=== PATIENT | female | born 1985 | race Caucasian/White ===

== ENCOUNTER 2017-03-18 16:11 | Outpatient (CLI) | payer OTHER ==
--- NOTE | 2017-03-19 13:03 | MRI Report ---
EXAM: LEFT KNEE MRI WITHOUT CONTRAST EXAM DATE: 03/18/2017 05:20 PM. CLINICAL HISTORY: Pain in left knee. COMPARISON: None. TECHNIQUE: Multiplanar, multisequence T1-weighted and fluid-sensitive sequences of the knee without c ontrast. Other: None. FINDINGS: Bones: Small subcortical cysts intercondylar tibia near ACL attachment. These appear degenerative. Al ignment normal. No fracture or marrow edema. Small osteophytes medial compartment. Articular Cartilage: Grade 2 chondromalacia medial compartment. Grade 1-2 chondromalacia patellofemor al compartment. Medial Meniscus: The medial meniscus is intact. Lateral Meniscus: The lateral meniscus is intact. Cruciate Ligaments: Mild T2 hyperintensity and thickening distal ACL, likely chronic sprain. PCL inta ct. Collateral Ligaments: The medial collateral and lateral collateral ligamentous structures are intact. Tendons: The quadriceps, patellar, semimembranosus, and popliteus tendons are unremarkable. Musculature: No edema or fatty atrophy. Other: No effusion. No popliteal cyst. No loose bodies. The medial and lateral retinacula are intact . The subcutaneous tissues and fat pads are unremarkable. IMPRESSION: 1. Likely chronic partial-thickness sprain distal ACL with some degenerative changes in the intercond ylar tibia. 2. Mild chondromalacia medial and patellofemoral compartments. [facility] MUSCULOSKELET[facility] RADIOLOGY SECTION Referring Provider Line: [phone] SITE ID: [id number]
== END 2017-03-18 16:12 | disposition home or self-care (01) ==
LOC: DI 16:11
PROVIDERS: ATTEND Student in an Organized Health Care Education/Training Program
DX: M22.42 Chondromalacia patellae, left knee (principal)

== ENCOUNTER 2019-04-13 14:20 | Outpatient (CLI) | payer OTHER ==
--- NOTE | 2019-04-14 12:08 | MRI Report ---
Reason: PAIN IN LT KNEE Procedure Date: 04/13/2019 Accession Number: [id number] / [id number] Procedure: MRI - Knee LT W/O CPT Code: Final Report FULL RESULT: EXAM: LEFT KNEE MRI WITHOUT CONTRAST EXAM DATE: 04/13/2019 03:13 PM. CLINICAL HISTORY: Pain in left knee. COMPARISON: KNEE LT W/O 03/18/2017 4:30 PM. TECHNIQUE: Multiplanar, multisequence T1-weighted and fluid-sensitive sequences of the knee without contrast. Other: None. FINDINGS: Cruciate ligaments: The anterior and posterior cruciate ligaments apparent intact. There is some heterogenous signal within the lower portion of the anterior cruciate ligament similar to prior. Medial meniscus: Slight blunting at the free margin of the anterior body. No tear identified. Unchanged. Lateral meniscus: Intact. No tear is identified. Collateral ligaments: The medial and fibular collateral ligaments appear intact. Bones and articular surfaces: Mild cartilage thinning and surface irregularity in the patellofemoral compartment. There is some high signal underlying articular cartilage at the central aspect of the trochlea with cartilage fissuring unchanged. Moderate focal cartilage thinning and fissuring at the weightbearing medial femoral condyle which is new compared to the previous exam. Lateral compartment demonstrates no significant articular cartilage defects. Minimal joint effusion. Extensor mechanism: The patellar tendon and quadriceps insertion appear intact. IMPRESSION: 1. New moderate cartilage thinning and fissuring at the weightbearing medial femoral condyle. No associated subchondral edema. 2. Mild to moderate chondromalacia in the patellofemoral compartment unchanged. [facility]
== END 2019-04-13 14:21 | disposition home or self-care (01) ==
LOC: DI 14:20
PROVIDERS: ATTEND Orthopaedic Surgery
DX: M22.42 Chondromalacia patellae, left knee (principal)

== ENCOUNTER 2019-07-06 08:07 | Day surgery (SDC) | payer OTHER ==
[2019-07-06] MEDS ORDERED: GLYCOPYRROLATE 1 MG/5 ML VIAL IVP ONE (08:08)
[2019-07-06] MEDS ORDERED: LIDOCAINE-MPF 2% 5 ML VIAL IM ONE (08:08)
[2019-07-06] MEDS ORDERED: ACETAMINOPHEN 1,000 MG/100 ML 100 ML IV ONE (08:08)
[2019-07-06] MEDS ORDERED: DEXAMETHASONE 4 MG/ML VIAL IVP ONE (08:08)
[2019-07-06] MEDS ORDERED: PROPOFOL 200 MG/20 ML VIAL IVP ONE (08:08)
[2019-07-06] MEDS ORDERED: fentaNYL 100 MCG/2 ML VIAL IVP ONE (08:08)
[2019-07-06] MEDS ORDERED: ONDANSETRON 4 MG/2 ML VIAL IVP ONE (08:08)
[2019-07-06] MEDS ORDERED: KETOROLAC 30 MG/ML VIAL IVP ONE (08:08)
[2019-07-06 08:13] LABS: HCG UR QUAL NEGATIVE
[2019-07-06] MEDS ORDERED: LACTATED RINGERS 1,000 ML IV ONE ×2 (08:27→10:37)
[2019-07-06] MEDS ORDERED: CEFAZOLIN SODIUM IN 0.9 % NACL 2 GM/100 ML BAG IV ONE (08:32)
--- NOTE | 2019-07-06 08:50 | ANESTHESIA ---
Pre-Anesthesia VS, & Labs - Diagnosis L knee cartilage injury - Procedure L knee arthroscopy, chondroplasty Vital Signs: Temp Pulse Resp BP Pulse Ox 36.2 C L 86 18 122/71 100 07/06/19 08:00 07/06/19 08:00 07/06/19 08:00 07/06/19 08:00 07/06/19 08:00 Height 5 ft 5 in Weight (kg) 81.65 kg - NPO >8 hours - Is Patient ?: No - Lab Results Lab results reviewed: Yes Home Medications and Allergies Home Medications: Ambulatory Orders Celecoxib [Celebrex] 200 mg PO 07/03/19 Fluoride (Sodium) [Prevident 5000 [employer]] 100 ml DT 07/03/19 Gabapentin [Neurontin] 300 mg PO TID 07/03/19 Multivitamin [Multivitamins] 1 each PO DAILY 12/18/15 Celecoxib [Celebrex] 200 mg PO 07/03/19 Fluoride (Sodium) [Prevident 5000 [employer]] 100 ml DT 07/03/19 Gabapentin [Neurontin] 300 mg PO TID 07/03/19 Allergies/Adverse Reactions: Allergies Allergy/AdvReac Type Severity Reaction Status Date / Time No Known Drug Allergies Allergy Verified 07/03/19 08:48 Anes History & Medical History - Anesthetic History Anesthesia Complications: reports: No previous complications Family history of Anesthesia Complications: Denies Family history of Malignant Hyperthermia: Denies - Medical History Cardiovascular: reports: None Pulmonary: reports: None Gastrointestinal: reports: None Urinary: reports: None Musculoskeletal: reports: Other Endocrine/Autoimmune: reports: None Skin: reports: Eczema Smoking Status: Former smoker Psychosocial: reports: Alcohol (2-3/week) - Surgical History Orthopedic: Arthroscopic surgery Exam General: Alert, Oriented x3, Cooperative Dental: WNL Mouth Opening: Greater than 4 Fingerbreadths Neck Mobility: Normal Mallampati classification: I Thyromental Distance: greater than 6 cm Respiratory: Lungs clear, Normal breath sounds, No respiratory distress Cardiovascular: Regular rate Neurological: Normal speech Mental/Cognitive Status: Alert/Oriented X3, Normal for patient Cognitive Status: Within normal limits Plan Anesthesia Type: General Consent for Procedure(s) Verified and Reviewed: Yes Code Status: Attempt Resuscitation ASA classification: 1-Healthy patient Is this case an emergency?: No
[2019-07-06] MEDS ORDERED: EPINEPHrine 1 MG/ML AMP ONE (08:55)
[2019-07-06] MEDS ORDERED: BUPIVACAINE 0.25% PF 30 ML VIAL ONE (08:56)
[2019-07-06] MEDS ORDERED: BUPIVACAINE 0.25% PF 30 ML VIAL SUBQ ONE ×2 (09:53)
[2019-07-06] MEDS ORDERED: ONDANSETRON 4 MG/2 ML VIAL IVP PRN (10:27)
[2019-07-06] MEDS ORDERED: oxyCODONE 5 MG TABLET PO PRN (10:27)
--- NOTE | 2019-07-06 10:34 | OPERATIVE REPORT ---
Operative Report - Other Other Information/Narrative: Date of Surgery: 06 Jul 2019 Pre-Op Diagnosis: Left knee medial femoral condyle cartilage lesion Procedure: Left knee arthroscopy medial plica excision. Trochlear chondroplasty. Patella chondroplasty. Medial femoral condyle chondroplasty. Postop Diagnosis: Left knee medial femoral condyle cartilage lesion, trochlear cartilage lesion. Patellar cartilage lesion. 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 She has had multiple surgeries to the left knee in relation to this. She has had persistent pain over the medial side of the knee which is been activity limiting. An MRI showed a cartilage lesion on the medial femoral condyle. The goal of the surgery was to assess the size of the cartilage lesion, excise any unstable portions, and stage for any possible future procedures. The risks, benefits, and alternatives were discussed. Risks include pain, bleeding, infection, damage to nearby structures and cartilage, lack of symptom relief, need for further surgery, DVT, PE, stroke, and . Written consent was obtained. Examination Under Anesthesia: ROM equal to the contralateral side. Stable dial at 30 & 90 degrees. Stable to varus and valgus stressing at 0 & 30 degrees. Normal Nirmal. Normal Pivot shift. No mechanical sensation Arthroscopic Findings: Loose bodies -none Synovium -a medial plica was seen connecting the remnants of the fat pad to the medial capsule, this was excised with a shaver. Patella cartilage -small partial-thickness lesion centrally which was lightly debrided with a shaver Trochlear cartilage -10 mm x 10 mm heart-shaped full-thickness cartilage lesion central in the trochlea, there were unstable borders and those were excised with a biter and shaver Medial femoral condyle cartilage - 17 mm long by 7 mm wide crescent shaped full- thickness cartilage lesion on the medial aspect of the medial femoral condyle in the weightbearing portions. A large free flap was seen and excised with a biter and shaver Medial tibial plateau cartilage -grade 1 softening Medial meniscus -normal Anterior cruciate ligament -some fraying of the ligament at the insertion on the femur, this was excised. Ligament was overall intact Posterior cruciate ligament -normal Lateral femoral condyle cartilage -normal Lateral tibial plateau cartilage -grade 1 softening with a couple superficial cracks Lateral meniscus -normal Procedure in Detail: The patient was met in the pre-operative hold area on the day of the procedure. The operative extremity was signed and questions were answered. The patient was brought to the operating room and a general anesthetic was administered. Supine position was used and bony prominences were padded. An examination under anesthesia was performed. Standard prepping and draping was performed. A time out confirmed patient identification, laterality, procedure, allergies, antibiotics, and images. An Esmarch was used to exsanguinate the limb and the tourniquet was elevated to 250 mmHg. A standard diagnostic arthroscopy of the knee was performed through anterolateral and anteromedial portal sites. The anteromedial portal was created under direct visualization after localizing with a spinal needle. The findings can be found above. I then proceeded to use a biter and a shaver to excise all unstable portions of cartilage. A shaver was used to excise the medial plica. Following excision of unstable cartilage I then measured it closely with the probe and probed the edges to ensure that they were all stable. Final images were taken and all arthroscopic fluid and instruments were removed from the knee. The incisions were closed with buried monocryl sutures. Steri strips were applied. 20 cc of 0.25% Marcaine without epinephrine was injected near the portal sites. A sterile dressing and compression stocking was placed. The patient was awakened and transferred to recovery in stable condition.
[2019-07-06] MEDS ORDERED: HYDROmorphone 0.5 MG/0.5 ML SYRINGE ONE (10:47)
[2019-07-06] MEDS: fentaNYL 100 MCG/2 ML VIAL ONE ×2 (10:58→11:08)
[2019-07-06] MEDS ORDERED: oxyCODONE 5 MG TABLET ONE (11:29)
[2019-07-06 11:33] VITALS: BP 102/67
== END 2019-07-06 08:08 | disposition home or self-care (01) ==
LOC: SDS 08:07
PROVIDERS: ATTEND Orthopaedic Surgery
PROC: 0SBD4ZZ Excision of Left Knee Joint, Percutaneous Endoscopic Approach (ICD-10-PCS; principal; 2019-07-06 09:15)
DX: M23.92 Unspecified internal derangement of left knee (principal); M67.52 Plica syndrome, left knee; Z87.39 Personal history of other diseases of the musculoskeletal system and connective tissue; Z87.891 Personal history of nicotine dependence
CPT/HCPCS: 81025